=== PATIENT | male | born 1950 | race Caucasian/White ===

== ENCOUNTER 2017-08-12 10:01 | Day surgery (SDC) | payer MEDICARE, BC ==
[~2017-08-12 10:01] MED LIST: Lactated Ringers 1,000 ML IV SCH; Sodium Chloride 0.9% 10 ML Syringe FLUSH PRN
[2017-08-12] MEDS ORDERED: Midazolam 1 MG/ML 2 ML SDV ONE ×2 (10:49→10:52)
[2017-08-12] MEDS ORDERED: fentaNYL 100 MCG/2 ML SDV ONE ×2 (10:49→10:52)
[2017-08-12] MEDS ORDERED: Propofol 200 MG/20 ML SDV ONE ×2 (10:50→10:52)
--- NOTE | 2017-08-12 10:51 | PCM.PN ---
- General Info Date of Service: 08/12/17 - Review of Systems Systems Review Comment:: 67-year-old male with long-standing history of acid reflux and apparent Finley' s esophagus referred for EGD. The patient has had prior antireflux procedure. He also has had previous EGDs although his last one was several years ago. I have reviewed his recent history and physical and there is no significant change in his health status from that exam. I have discussed the proposed upper endoscopy with the patient. He understands the proposed procedure and agrees to proceed accepting risks. - Patient Data Vitals - Most Recent: Last Vital Signs Temp 98.2 F 08/12/17 10:26 Pulse 80 08/12/17 10:26 Resp 20 08/12/17 10:26 BP 178/98 H 08/12/17 10:26 Pulse Ox 96 08/12/17 10:26 Weight - Most Recent: 97.976 kg Lab Results Last 24 Hours: Laboratory Results - last 24 hr 08/12/17 Range/Units 10:12 POC Glucose 148 H (65-110) mg/dl Med Orders - Current: Current Medications Lactated Ringer's (Ringers, Lactated) 1,000 mls @ 125 mls/hr IV ASDIRECTED REJI Last Admin: 08/12/17 10:32 Dose: 125 mls/hr Sodium Chloride (Saline Flush) 10 ml FLUSH ASDIRECTED PRN PRN Reason: Keep Vein Open - Problem List Review Problem List Initiated/Reviewed/Updated: Yes - Assessment Assessment:: History of acid reflux and Finley's esophagus - Plan Plan:: EGD
[2017-08-12] MEDS ORDERED: Lidocaine 2% 5 ML SDV ONE (10:52)
--- NOTE | 2017-08-12 11:35 | PCM.OPNOTE ---
- General Post-Op/Procedure Note Date of Surgery/Procedure: 08/12/17 Operative Procedure(s): EGD with Biopsy Findings: Hiatal hernia with long segment (10 cm) Finley's esophagus Prior anti-reflux procedure which has loosened significantly Pre Op Diagnosis: History of Finley's esophagus Post-Op Diagnosis: Hiatal hernia. Finley's esophagus Anesthesia Technique: MAC Primary Surgeon: Javi Garcia Pathology: Biopsies of esophagus Output, Urine Amount: 0 EBL in mLs: 5 Complications: None Condition: Good Free Text/Narrative:: Intake & Output 08/11/17 08/12/17 08/12/17 22:59 06:59 14:59 Intake Total 700 Balance 700
--- NOTE | 2017-08-12 15:00 | OR ---
Date of Procedure: 08/12/2017 PREOPERATIVE DIAGNOSES: History of acid reflux and possible Finley's esophagus. POSTOPERATIVE DIAGNOSES: Hiatal hernia and long segment Finley's esophagus. OPERATION PERFORMED: Esophagogastroduodenoscopy with biopsy. INDICATIONS FOR SURGERY: This 67-year-old male has a known long history of acid reflux. He did have an anti-reflux procedure performed about 10 years ago. He has been on Prilosec, which is controlling his symptoms, but has been diagnosed with Finley's esophagus in the past and comes for surveillance upper endoscopy. FINDINGS: The patient has had previous anti-reflux procedure, but the wrap appears to be significantly loosened, and he has a moderate-sized hiatal hernia approximating 5 cm in length. The patient has grossly visible Finley esophagus changes involving a long segment of the distal esophagus from approximately the 25 to 35 cm level from the incisors. In the upper portion, there is a small degree of nodularity, but otherwise, no gross evidence suggestive of malignancy. No stricturing was noted. The remainder of the stomach and the duodenum was normal. DESCRIPTION OF PROCEDURE: The patient was taken to the operating room. He was given intravenous sedation and his throat was topically anesthetized. The esophagus was intubated with the Olympus gastroscope, was carefully advanced down through the esophagus, stomach, and duodenum, where examination to the 3rd portion was performed. After examining the duodenum, the scope was withdrawn into the stomach where full examination including retroflexed examination of the fundus was performed. The GE junction and distal esophagus were then carefully examined. Biopsies of multiple levels were taken in the grossly abnormal segment that is consistent with Finley's esophagus. These are submitted to rule out any dysplasia. After the biopsies had been completed and the remainder of the esophagus has been carefully examined, the scope was removed and the patient was taken from the operating room in satisfactory condition. ESTIMATED BLOOD LOSS: 5 mL. COMPLICATIONS: None. PROGNOSIS: Good. LIZ Garcia MD /[id number] MTDD
[2017-08-12 16:32] VITALS: BP 131/82
== END 2017-08-12 12:31 | disposition home or self-care (01) ==
LOC: LL.SDS 10:01
PROVIDERS: ATTEND Surgery
DX: K22.710 Barrett's esophagus with low grade dysplasia (principal); K44.9 Diaphragmatic hernia without obstruction or gangrene; I10 Essential (primary) hypertension; E11.9 Type 2 diabetes mellitus without complications; G47.33 Obstructive sleep apnea (adult) (pediatric); Z79.82 Long term (current) use of aspirin; Z79.4 Long term (current) use of insulin; Z79.899 Other long term (current) drug therapy
CPT/HCPCS: 00731; 82962; 88305; J2250; J2704; J3010; J7120